=== PATIENT | male | born 1965 | race Caucasian/White ===

== ENCOUNTER 2017-09-03 21:23 | Emergency (ER) | payer OTHER, BC ==
[~2017-09-03] VITALS: Ht 177.8 cm; Wt 96.2 kg
[~2017-09-03 21:23] MED LIST: ASP81CT; HCT25T; LISI10TA2; SIMV5TAB6
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
[2017-09-03 21:54] VITALS: BP 169/101
== END 2017-09-03 21:54 | disposition home or self-care (01) ==
LOC: EDUNIT# 21:23 → ER 21:25
DX: S50.812A Abrasion of left forearm, initial encounter (principal); Z79.82 Long term (current) use of aspirin; V40.5XXA Car driver injured in collision with pedestrian or animal in traffic accident, initial encounter
CPT/HCPCS: 99282